=== PATIENT | female | born 1945 | race Caucasian/White ===

== ENCOUNTER 2021-07-25 09:05 | Emergency (ER) | payer MEDICARE, MEDICAID, SELFPAY ==
[2021-07-25 09:12] VITALS: BP 155/77; PULSE 75; RESP 20; TEMP 36.5; O2SAT 97
--- NOTE | 2021-07-25 09:46 | ED.SKABFB ---
HPI - Skin/Abscess/Foreign Bdy General Chief complaint: Skin/Abscess/Foreign Body Stated complaint: RED BUMP ON ARM Time Seen by Provider: 07/25/21 09:46 Source: patient and RN notes reviewed Mode of arrival: ambulatory Limitations: no limitations History of Present Illness complaint: insect bite/sting Onset (ago): day(s) (5) Location: RUE (forearm) Severity: mild Quality: aching and dull Pain Consistency: constant Relieving factors: none Exacerbating factors: none Context: none Associated symptoms: denies other symptoms Treatments prior to arrival: none Related Data Home Medications Medication Instructions Recorded Confirmed atenolol 50 mg PO DAILY 07/25/21 07/25/21 lovastatin 40 mg PO DAILY 07/25/21 07/25/21 metformin 500 mg PO DAILY 07/25/21 07/25/21 Review of Systems Review of Systems: All systems reviewed & are unremarkable except as noted in HPI and below Constitutional: Constitutional: Denies chills and Denies fever(s) PMFSH Past Medical History Medical History (Updated 07/25/21 @ 10:03 by Drake Dickens MD) Hyperlipidemia Hypertension Type 2 diabetes mellitus Social History Social History (Updated 07/25/21 @ 10:04 by Drake Dickens MD) Smoking status: Former smoker Exam Const: General: healthy appearing, no acute distress and alert Nutritional Appearance: well nourished Orientation/consciousness: patient oriented x3 HENMT: Head: normal to inspection Ears: external ears normal Eyes: Conjunctivae: conjunctivae normal Pupils: Equal, round and reactive pupils present EOM: EOMs intact bilaterally Neck: Neck: normal visual inspection Resp: Effort & Inspection: normal respiratory effort Auscultation: clear to auscultation bilaterally Cardio: Rate: regular rate Rhythm: regular rhythm GI: Auscultation: normal bowel sounds Back/Spine/Pelvis: Cervical Spine: cervical ROM normal Thoracic/Lumbar Spine: thoraco-lumbar ROM normal Skin: General skin exam: normal color Lesions: lesion noted macule right mid forearm size (4 cm), borders well-defined, color blanching, consistency soft, surface blanching, cool and smooth and tender Neuro: General: patient oriented x3, moves all extremities, no focal motor deficits and CN's II-XI intact bilaterally Speech: normal speech Gait exam (Neuro): Normal gait present Extrem: General: normal to inspection and no clubbing, cyanosis or edema Psych: Appearance: grossly normal and well kempt Mental Status: mental status grossly normal Affect: normal affect Attitude: cooperative Thought content: Yes Normal thought content present Discharge Plan Discharge Clinical Impression: Insect bites Qualifiers: Encounter type: initial encounter Site of insect bite: forearm Laterality: right Qualified Code(s): S50.861A - Insect bite (nonvenomous) of right forearm, initial encounter Patient Disposition: Home, Self-Care Condition: Stable Instructions: Insect Bite or Sting (ED) Additional Instructions: Use Tylenol and or Motrin as needed. Warm compresses as needed. Prescriptions: No Action metformin 500 mg tablet 500 mg PO DAILY RF: 0 lovastatin 40 mg tablet 40 mg PO DAILY RF: 0 atenolol 50 mg tablet 50 mg PO DAILY RF: 0 Follow-up/Referrals: Gladys,JOSE Conway [Primary Care Provider] - Time of Disposition: 09:56
[2021-07-25 10:08] VITALS: BP 155/77; PULSE 75; RESP 20; TEMP 36.5; O2SAT 97
== END 2021-07-25 10:09 | disposition home or self-care (01) ==
PROVIDERS: Emergency Provider Emergency Medicine; PCP Physician Assistant
DX: S50.861A Insect bite (nonvenomous) of right forearm, initial encounter (principal); W57.XXXA Bitten or stung by nonvenomous insect and other nonvenomous arthropods, initial encounter
CPT/HCPCS: 99281

== ENCOUNTER 2022-01-05 09:40 | Emergency (ER) | payer MEDICARE, MEDICAID, SELFPAY ==
[2022-01-05 09:43] VITALS: BP 178/69; PULSE 81; RESP 17; TEMP 36.4; O2SAT 100
[2022-01-05 09:45] VITALS: BP 178/69; PULSE 78; RESP 16; TEMP 36.4; O2SAT 100
--- NOTE | 2022-01-05 10:00 | ED.ALLEREA ---
HPI - Allergic Reaction General Chief complaint: Allergic Reaction Stated complaint: bee sting allergic reaction Source: patient Mode of arrival: ambulatory History of Present Illness HPI narrative: 76-year-old female with a history of hypertension, dyslipidemia, diabetes mellitus presented to the ER with a 2 day history of -- erythematous rash on the right forearm measuring 3 cm X 6 cm which developed after a bee sting. No prior history of a major allergic reaction to a bee sting. No wheezing or shortness of breath. No abdominal pain. No lightheadedness. No other the rash noted. MD complaint: allergic reaction Onset (ago): day(s) ( Started 2 days ago) Exposure: insect bite ( bee sting) Symptoms: rash and itching Severity: mild Treatment prior to arrival: none Previous Allergic Reaction History: none Related Data Home Medications Medication Instructions Recorded Confirmed atenolol 50 mg tablet 50 mg PO DAILY 07/25/21 01/05/22 lovastatin 40 mg tablet 40 mg PO DAILY 07/25/21 01/05/22 metformin 500 mg tablet 500 mg PO DAILY 07/25/21 01/05/22 Allergies Allergy/AdvReac Type Severity Reaction Status Date / Time Sulfa (Sulfonamide Allergy Dizziness Verified 01/05/22 09:51 Antibiotics) Review of Systems Review of Systems: All systems reviewed & are unremarkable except as noted in HPI and below Constitutional: Constitutional: Reports as per HPI and Reports no additional constitutional complaints Eyes: Eyes: Reports as per HPI and Reports no additional eye complaints ENT: Reports system reviewed and no additional complaints, except as documented and Reports as per HPI Cardiovascular: Cardiovascular: Reports as per HPI and Reports no additional cardiovascular complaints Respiratory: Respiratory: Reports as per HPI and Reports no additional respiratory complaints Gastrointestinal: Gastrointestinal: Reports as per HPI and Reports no additional gastrointestinal complaints Genitourinary: Genitourinary: Reports no additional female genitourinary complaints and Reports as per HPI Musculoskeletal: Musculoskeletal: Reports no additional musculoskeletal complaints and Reports as per HPI Integumentary/Breasts: Skin/Breast: Reports system reviewed and no additional complaints, except as docu and Reports as per HPI Comments: 3 cmX 6 cm oval rash on the right forearm which is itchy Neurologic: Reports system reviewed and no additional complaints, except as documented and Reports as per HPI Psychiatric: Psychiatric: Reports no additional psychiatric complaints and Reports as per HPI Endocrine: Endocrine: Reports no additional endocrine complaints and Reports as per HPI Hematologic/Lymphatic: Hematologic/Lymphatic: Reports no additional hematologic/lymphatic complaints and Reports as per HPI Allergic/Immunologic: Allergic/Immunologic: Reports no additional allergic/immunologic complaints and Reports as per HPI PMFSH Past Medical History Medical History Hyperlipidemia Hypertension Type 2 diabetes mellitus Social History Social History Smoking status: Former smoker Exam Const: General: healthy appearing and no acute distress Nutritional Appearance: well nourished Orientation/consciousness: patient oriented x3 Limitations: no limitations HENMT: Head: normal to inspection Ears: external ears normal Face/Nose/Sinus: Normal external nose present Face and sinus: normal facial exam Mouth: Yes Normal oral and palatal mucosa present Eyes: Conjunctivae: conjunctivae normal Pupils: Equal, round and reactive pupils present EOM: EOMs intact bilaterally Direct Ophthalmoscopy: no photophobia Neck: Neck: normal visual inspection, no lymphadenopathy and no meningeal signs Chest: Chest palpation & inspection: normal inspection of the chest Resp: Effort & Inspection: normal respiratory effort Auscultatio
[2022-01-05 10:15] VITALS: BP 181/74; PULSE 81; RESP 18; TEMP 37.4; O2SAT 98
[2022-01-05 10:24] VITALS: BP 178/69; PULSE 78; RESP 16; TEMP 36.4; O2SAT 100
== END 2022-01-05 10:26 | disposition home or self-care (01) ==
PROVIDERS: Emergency Provider Internal Medicine Critical Care Medicine; PCP Physician Assistant
DX: T63.441A Toxic effect of venom of bees, accidental (unintentional), initial encounter (principal); E78.5 Hyperlipidemia, unspecified; I10 Essential (primary) hypertension; E11.9 Type 2 diabetes mellitus without complications
CPT/HCPCS: 99281

== ENCOUNTER 2025-03-04 07:54 | Emergency (ER) | payer MEDICARE, SELFPAY ==
[2025-03-04 07:54] VITALS: BP 178/80; PULSE 99; RESP 16; TEMP 36.7; O2SAT 98
--- OUTSIDE RECORDS SUMMARY | 2025-03-04 08:02 | XMS_ITS ---
Author Organization Unknown Address [address] [place] [phone] Phone Care Team Providers Care Lidder Name Role Phone RAJENDRA TAVERA Rodrigo Attending Unavailable DALIA ESPARZA Primary Unavailable Immunization Immunization Date Status Additional Notes Code Code System Influenza, high-dose, quadrivalent, PF 01/08/2022 Completed 197 CVX Social History Type Status Start Date End Date Code Code Syst em Smoking History Former smoker [id number] SNOMED CT Sex Female Hospital Discharge Instructions Should you have any questions prior to discharge, please contact a member of your healthcare team. If you have left the hospital and have any questions, please contact your primary care physician. Reason For Referral No Data Found Procedures Procedure Name Date Status Code Code Syste m Arthrocentesis, aspiration a nd/or injection, major joint or bursa; without 01/23/2025 completed CP T Plan of Treatment No Data Found Encounters Encounter Diagnosis Start Date Code Code Sys tem Unilateral primary osteoarthritis, left knee SNOMED-CT Personal Care Team Section
--- OUTSIDE RECORDS SUMMARY | 2025-03-04 08:02 | XMS_ITS | Clinical Summary ---
Author Organization [facility] Address [address] [place] [id number] Care Team Providers Care Pneumatic Jacketer Name Role Phone Unavailable Primary Care Provider Unavailabl e Social History Tobacco Use Types Packs/Day Years Used Date Smoking Tobacco: Never Assessed Comments Unknown Sex and Gender Information Value Date Recorded Sex Assigned at Not on file Legal Sex Female 11:25 AM CDT Gender Identity Not on file Sexual Orientation Not on file Plan of Treatment Health Maintenance Due Date Last Done Comments Hepatitis C 1963 DTaP, Tdap and Td Vaccines ( 1 - Tdap) 1965 Pneumococcal Vaccine: 50+ Ye ars (1 of 1 - PCV) 1996 Zoster Vaccines (1 of 2) 1996 Annual Medicare Wellness Visit 11/07/2011 Dexa Scan (General) 11/07/2011 RSV Immunization or 60+ Years (1 - 1-dose 75+ series) 2021 COVID-19 Vaccine (1 - 2024-2 6 season) 2024 Influenza Adult (#1) 2024 Hepatitis A Vaccines Aged Out No long er eligible based on patient's age to complete this topic Meningococcal B Vaccine Aged Out No l onger eligible based on patient's age to complete this topic Meningococcal Vaccine Aged Out No [place] eligible based on patient's age to complete this topic RSV Immunizations Under 20 Months Aged Out No longer eligible based on patient's age to complete this topic Insurance MEDICARE
--- OUTSIDE RECORDS SUMMARY | 2025-03-04 08:02 | XMS_ITS ---
Author Organization Unknown Address [address] [place] [phone] Phone Care Team Providers Care Event Marketing Manager Name Role Phone YAKELIN PHILIPEN Attending Unavailable DALIA ESPARZA Primary Unavailable Immunization Immunization Date Status Additional Notes Code Code System Influenza, high-dose, quadrivalent, PF 01/08/2022 Completed 197 CVX Results KNEE 4V LEFT - Completed: 15:06 LOINC: \TM00\\12PI\\DRAo\\BM09\ \MRHo\ [address] [address] ---------NAME--------- NUMBER SEX AGE ADMIT DISC. XRAY# F/C TYPE YAJAIRA CENTENO [id number] F 78 08/11/24 08/11/24 [id number] MB3 O/P DATE OF : 1945 M/R# [id number] PH#: [phone] RM \MRHx\ LOCATION: TRANSCRIBED: 08/11/24 16:28 KNEE 4V LEFT [id number] COMPLETED:08/11/24 15:06 [facility] [id number] {REASON-KNEE: LEFT KNEE PAIN PHYSICIAN: YAKELIN RUSSELL R A D I O L O G Y R E P O R T EXAM: KNEE 4V LEFT CLINICAL INDICATION: LEFT KNEE PAIN TECHNIQUE: KNEE 4V LEFT Comparison: KNEE 4V LEFT on DOS: 07/02/20, KNEE 4V RIGHT on DOS: 07/02/20 FINDINGS/IMPRESSION: There is no evidence of acute fracture or dislocation. Moderate left knee osteoarthritis. The alignment is anatomical. There is no radiopaque foreign body. 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 \ITLo\ \UNDo\ \UNDx\ \ITLx\ Reviewed and Electronically Signed by: Earnest Crow MD Signed Date: 08/11/24 16:28 08/11/24.1630.[email or web address].to DALIA FLORES via fax Social History Type Status Start Date End Date Code Code Syst em Smoking History Former smoker [id number] SNOMED CT Sex Female Hospital Discharge Instructions [...] nd/or injection, major joint or bursa; without completed CPT Plan of Treatment No Data Found Encounters Encounter Diagnosis Start Date Code Code Sys tem Unilateral primary osteoarthritis, left knee SNOMED-CT Personal Care Team Section Imaging Narrative Notes [facility] 08/11/2024 16:[address] [address] ---------NAME--------- NUMBER SEX AGE ADMIT DISC. XRAY# F/C TYPE YAJAIRA CENTENO [id number] F 78 08/11/24 08/11/24 [id number] MB3 O/P DATE OF : 1945 M/R# [id number] #: [phone] RM LOCATION: TRANSCRIBED: 08/11/24 16:28 KNEE 4V LEFT [id number] COMPLETED:08/11/24 15:06 [facility] [id number] {REASON-KNEE: LEFT KNEE PAIN PHYSICIAN: YAKELIN RUSSELL RADIOLOGY REPORT EXAM: KNEE 4V LEFT CLINICAL INDICATION: LEFT KNEE PAIN TECHNIQUE: KNEE 4V LEFT Comparison: KNEE 4V LEFT on DOS: 07/02/20, KNEE 4V RIGHT on DOS: 07/02/20 FINDINGS/IMPRESSION: There is no evidence of acute fracture or dislocation. Moderate left knee osteoarthritis. The alignment is anatomical. There is no radiopaque foreign body. 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
--- OUTSIDE RECORDS SUMMARY | 2025-03-04 08:02 | XMS_ITS | Data Portability ---
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 Plan of Treatment Reminders Order Date Submit Date Provider Last Modified By Organization Details Last Modified Time Details Appointments None recorded. Lab rapid strep group A, throat 2024 025 jnanney In-Office Order, Internal Use Only DO Not Attach Compendium DO Not Attach Compendium, Do Not Delete/merge, [id number] 11:02:11 HbA1c (hemoglobi n A1c), blood 2023 024 jnanney In-Office Order, Internal Use Only DO Not Attach Compendium DO Not Attach Compendium, Do Not Delete/merge, [id number] 14:07:49 HbA1c (hemoglobi n A1c), blood 2022 023 jnanney In-Office Order, Internal Use Only DO Not Attach Compendium DO Not Attach Compendium, Do Not Delete/merge, [id number] 10:50:02 HbA1c (hemoglobi n A1c), blood 2021 022 [facility] In-Office Order, Internal Use Only DO Not Attach Compendium DO Not Attach Compendium, Do Not Delete/merge, [id number] 11:54:00 CBC 2021 022 [facility], [address] [place] [address], [address], 2 07:13:02 CMP, serum or plasma 10/13/ 2022 10/13/2 022 [facility], [address] [facility], [facility] [address], [place], [address], 07:13:01 lipid panel, serum 2021 [facility], [address] [facility], [facility] [address], [place], [address], 07:13:01 TSH, serum or plasma 2021 [facility], [address] [facility], [address], [place], [address], 06:15:22 CBC 2021 [facility], [address] [place] [address], [address], [place], [address], 06:15:20 lipid panel, serum [address] [facility], [address] [facility], [address], [place], [address], 06:15:20 CMP, serum or plasma 2021 [facility], [address] [place] [address], [address], [place], [address], 06:15:19 HbA1c (hemoglobi n A1c), blood 2021 [place] In-Office Order, Internal Use Only DO Not Attach Compendium DO Not Attach Compendium, Do Not Delete/merge, [id number] 12:36:14 Referral None recorded. Procedures None recorded. Surgeries None recorded. Imaging None recorded. Medication Orders amoxicilli n 875 mg tablet 2024 025 [facility] #[id number], [address] [place], [address], 5 11:03:22 chlordiaze poxide 5 mg capsule 2023 024 [facility] [address] [place], [address], 4 14:09:14 atenolol 50 mg tablet 2023 024 [facility] [address] [place], [address], 4 14:09:14 lovastatin 20 mg tablet 2023 024 [facility] [address] [place], [address], 4 14:09:18 atenolol 50 mg tablet [facility] [address] [place], [address], 4 13:30:51 Patient TargetsNo targets recorded. Patient Instructions Encounter Date Encounter Id Patient Instructions Last Modified By Organization Details Last Modified Time 06/04/2021 [id number] learning about type 2 diabetes jnanney Not available 06/04/2021 12:09:43 type 2 diabetes: care instructions jnanney Not available 06/04/2021 12:09:42 learning about healthy weight jnanney Not available 06/04/2021 12:09:42 learning about high blood pressure jnanney Not available 06/04/2021 12:09:42 01/08/2022 [id number] influenza (flu) vaccine: care instructions jnanney Not available 01/08/2022 11:25:51 07/30/2022 [id number] A healthy lifestyle: care instructions jnanney Not available 07/30/2022 10:51:54 type 2 diabetes: care instructions jnanney Not available 07/30/2022 10:50:02 10/29/2023 [id number] learning about high blood pressure jnanney Not available 10/29/2023 14:07:48 type 2 diabetes: care instructions jnanney Not available 10/29/2023 14:07:48 05/12/2024 [id number] sore throat: car e instructions jnanney Not available 05/12/2024 11:02:10 A healthy lifestyle: care instructions jnanney Not available 05/12/2024 11:02:10 Reason for Referral None Reported. Results Created Date Observation Date Name Description Value Unit Range Abnormal Flag Note LastModifiedBy Organization Detail LastModifiedTime 06/05/19 22 06/05/2021 COMP. METAB OLIC PANEL (14) glucose 122 mg/dL 65-99 above high normal Not Available [facility] ([facility]) [address] [place], [address], 06/11/2021 06:15:19 06/05/19 22 06/05/2021 COMP. METAB OLIC PANEL (14) BUN 16 mg/dL 8-27 Not Available [facility] ([facility]) [address] [place], [address], 06/11/2021 06:15:19 06/05/19 22 06/05/2021 COMP. METAB OLIC PANEL (14) creatinine 0.84 mg/dL 0.57-1 .00 Not Available [facility] ([facility]) [address] [place], [address], 06/11/2021 06:15:19 06/05/19 22 06/05/2021 COMP. METAB OLIC PANEL (14) eGFR 73 mL/mi n/1.7 3 >59 Not Available [facility] ([facility]) [address] [place], [address], 06/11/2021 06:15:19 06/05/19 22 06/05/2021 COMP. METAB OLIC PANEL (14) BUN/creatini ne ratio 19 -28 Not Available [facility] ([facility]) [address] [place], [address], 06/11/2021 06:15:19 06/05/19 22 06/05/2021 COMP. METAB OLIC PANEL (14) sodium 140 mmol/ L 134-14 4 Not Available [facility] ([facility]) [address] [facility] [place], [address], 06/11/2021 06:15:19 06/05/19 22 06/05/2021 COMP. METAB OLIC PANEL (14) potassium 5.2 mmol/ L 3.5-5. 2 Not Available [facility] ([facility]) [address] [facility] [place], [address], 06/11/2021 06:15:19 06/05/19 22 06/05/2021 COMP. METAB OLIC PANEL (14) chloride 101 mmol/ L 96-106 Not Available [facility] ([facility]) [address] [facility] [place], [address], 06/11/2021 06:15:19 06/05/19 22 06/05/2021 COMP. METAB OLIC PANEL (14) carbon dioxide, total 23 mmol/ L 20-29 Not Available [facility] ([facility]) [address] [place], [address], 06/11/2021 06:15:19 06/05/19 22 06/05/2021 COMP. METAB OLIC PANEL (14) calcium 10.0 mg/dL 8.7-10 .3 Not Available [facility] ([facility]) [address] [place], [address], 06/11/2021 06:15:19 06/05/19 22 06/05/2021 COMP. METAB OLIC PANEL (14) protein, total 7.5 g/dL 6.0-8. 5 Not Available [facility] ([facility]) [address] [place], [address], 06/11/2021 06:15:19 06/05/19 22 06/05/2021 COMP. METAB OLIC PANEL (14) albumin 4.7 g/dL 3.7-4. 7 Not Available [facility] ([facility]) [address] [facility] [place], [address], 06/11/2021 06:15:19 06/05/19 22 06/05/2021 COMP. METAB OLIC PANEL (14) globulin, total 2.8 g/dL 1.5-4. 5 Not Available [facility] ([facility]) [address] [facility] [place], [address], 06/11/2021 06:15:19 06/05/19 22 06/05/2021 COMP. METAB OLIC PANEL (14) A/G ratio 1.7 1.2-2. 2 Not Available [facility] ([facility]) [address] [facility] [place], [address], 06/11/2021 06:15:19 06/05/19 22 06/05/2021 COMP. METAB OLIC PANEL (14) bilirubin, total 0.5 mg/dL 0.0-1. 2 Not Available [facility] ([facility]) [address] [facility] [place], [address], 06/11/2021 06:15:19 06/05/19 22 06/05/2021 COMP. METAB OLIC PANEL (14) alkaline phosphatase 86 IU/L 44-121 Not Available [facility] ([facility]) [address] [facility] [place], [address], 06/11/2021 06:15:19 06/05/19 22 06/05/2021 COMP. METAB OLIC PANEL (14) AST (SGOT) 18 IU/L 0-40 Not Available [facility] ([facility]) [address] [facility] [place], [address], 06/11/2021 06:15:19 06/05/19 22 06/05/2021 COMP. METAB OLIC PANEL (14) ALT (SGPT) 17 IU/L 0-32 Not Available [facility] ([facility]) [address] [facility], [place], [address], 06/11/2021 06:15:19 06/05/19 22 06/05/2021 CBC, PLATE LET, NO DIFFE RENTI AL WBC 7.2 x10e3 /uL 3.4-10 .8 Not Available [facility] ([facility]) [address] [facility], [place], [address], 06/11/2021 06:15:20 06/05/19 22 06/05/2021 CBC, PLATE LET, NO DIFFE RENTI AL RBC 5.08 x10e6 /uL 3.77-5 .28 Not Available [facility] ([facility]) [address] [facility], [place], [address], 06/11/2021 06:15:20 06/05/19 22 06/05/2021 CBC, PLATE LET, NO DIFFE RENTI AL hemoglobin 14.8 g/dL 11.1-1 5.9 Not Available [facility] ([facility]) [address] [facility], [place], [address], 06/11/2021 06:15:20 06/05/19 22 06/05/2021 CBC, PLATE LET, NO DIFFE RENTI AL hematocrit 44.6 % 34.0-4 6.6 Not Available [facility] ([facility]) [address] [facility], [place], [address], 06/11/2021 06:15:20 06/05/19 22 06/05/2021 CBC, PLATE LET, NO DIFFE RENTI AL MCV 88 fL 79-97 Not Available [facility] ([facility]) [address] [place], [address], 06/11/2021 06:15:20 06/05/19 22 06/05/2021 CBC, PLATE LET, NO DIFFE RENTI AL MCH 29.1 pg 26.6-3 3.0 Not Available [facility] ([facility]) [address], [place], [address], 06/11/2021 06:15:20 06/05/19 22 06/05/2021 CBC, PLATE LET, NO DIFFE RENTI AL MCHC 33.2 g/dL 31.5-3 5.7 Not Available [facility] ([facility]) [address] [facility], [place], [address], 06/11/2021 06:15:20 06/05/19 22 06/05/2021 CBC, PLATE LET, NO DIFFE RENTI AL RDW 12.6 % 11.7-1 5.4 Not Available [facility] ([facility]) [address] [facility], [place], [address], 06/11/2021 06:15:20 06/05/19 22 06/05/2021 CBC, PLATE LET, NO DIFFE RENTI AL platelets 323 x10e3 /uL 150-45 0 Not Available [facility] ([facility]) [address] [facility], [place], [address], 06/11/2021 06:15:20 06/05/19 22 06/05/2021 CBC, PLATE LET, NO DIFFE RENTI AL NRBC RECORDS COORDINATOR Not Available [facility] ([facility]) [address] [facility], [place], [address], 06/11/2021 06:15:20 06/05/19 22 06/05/2021 LIPID PANEL cholesterol, total 316 mg/dL 100-19 9 above high normal Not Available [facility] ([facility]) [address] [facility] [place], [address], 06/11/2021 06:15:20 06/05/19 22 06/05/2021 LIPID PANEL triglyceride s 180 mg/dL 0-149 above high normal Not Available [facility] ([facility]) [address] [facility] [place], [address], 06/11/2021 06:15:20 06/05/19 22 06/05/2021 LIPID PANEL HDL cholesterol 55 mg/dL >39 Not Available [facility] ([facility]) [address] [facility], [place], [address], 06/11/2021 06:15:20 06/05/19 22 06/05/2021 LIPID PANEL VLDL cholesterol jonny 35 mg/dL 5-40 Not Available [facility] ([facility]) [address] [facility], [place], [address], 06/11/2021 06:15:20 06/05/19 22 06/05/2021 LIPID PANEL LDL chol calc ([facility]) 226 mg/dL 0-99 above high normal Not Available [facility] ([facility]) [address] [facility], [place], [address], 06/11/2021 06:15:20 06/05/19 22 06/05/2021 LIPID PANEL comment: RECORDS COORDINATOR Not Available [facility] ([facility]) [address] [facility], [place], [address], 06/11/2021 06:15:20 06/05/19 22 06/05/2021 CARDI OVASC ULAR REPOR T interpretati on Note Suppl ement al repor t is avail able. Not Available [facility] ([facility]) [address] [facility], [place], [address], 06/11/2021 06:15:21 06/05/19 22 06/05/2021 CARDI OVASC ULAR REPOR T pdf Not applic able Not Available [facility] ([facility]) [address] [facility], [place], [address], 06/11/2021 06:15:21 06/05/19 22 06/05/2021 LITHO LINK CKD PROGR AM interpretati on Note Medic al Direc tor's Note: Effec tive 2021, [facility] uses the 2020 CKD-E PI creat inine equat ion witho ut a race facto r to calcu late and repor t eGFR resul ts. eGFR resul ts repor roxanne prior to this date using the 2009 CKD-E PI equat ion are no longe r inclu ded in this repor t inter preta tion. Suppl ement al repor t is avail able. Not Available [facility] ([facility]) [address] [facility], [place], [address], 06/11/2021 06:15:21 06/05/19 22 06/05/2021 LITHO LINK CKD PROGR AM pdf . Not Available [facility] ([facility]) [address] [facility], [place], [address], 06/11/2021 06:15:21 06/05/19 22 06/10/2021 THYRO ID STIMU LATIN G HORMO NE TSH-icma 2.4 uu/mL Refer ence Range : Non-P regna nt Adult 0.450 -4.50 0 Pregn leonardo First Trime ster 0.100 -4.00 0 Secon d Trime ster 0.200 -4.00 0 Third Trime ster 0.300 -4.50 0 Not Available [facility] [address] [facility], [place], [address], 06/11/2021 06:15:22 06/05/19 22 06/04/2021 HbA1c (hemo globi n A1c), blood HbA1c 6.4 Not Available In-Office Order Internal Use Only DO Not Attach Compendium DO Not Attach Compendium, Do Not Delete/merge, [id number] 06/04/2021 12:06:46 01/09/2001/09/2022 LIPID PANEL cholesterol, total 257 mg/dL 100-19 9 above high normal Not Available [facility] ([facility]) [address] [facility], [place], [address], 01/09/2022 07:13:01 01/09/20 22 01/09/2022 LIPID PANEL triglyceride s 213 mg/dL 0-149 above high normal Not Available [facility] ([facility]) [address] [place], [address], 01/09/2022 07:13:01 01/09/20 22 01/09/2022 LIPID PANEL HDL cholesterol 50 mg/dL >39 Not Available [facility] ([facility]) [address] [place], [address], 01/09/2022 07:13:01 01/09/20 22 01/09/2022 LIPID PANEL VLDL cholesterol jonny 40 mg/dL 5-40 Not Available [facility] ([facility]) [address] [place], [address], 01/09/2022 07:13:01 01/09/2001/09/2022 LIPID PANEL LDL chol calc ([facility]) 167 mg/dL 0-99 above high normal Not Available [facility] ([facility]) [address] [place], [address], 01/09/2022 07:13:01 01/09/2001/09/2022 COMP. METAB OLIC PANEL (14) glucose 98 mg/dL 70-99 Ple ase note refer ence inter brad burak e Not Available [facility] ([facility]) [address] [place], [address], 01/09/2022 07:13:01 01/09/20 22 01/09/2022 COMP. METAB OLIC PANEL (14) BUN 8 mg/dL 8-27 Not Available [facility] ([facility]) [address] [place], [address], 01/09/2022 07:13:01 01/09/2001/09/2022 COMP. METAB OLIC PANEL (14) creatinine 0.89 mg/dL 0.57-1 .00 Not Available [facility] ([facility]) [address] [place], [address], 01/09/2022 07:13:01 01/09/20 22 01/09/2022 COMP. METAB OLIC PANEL (14) eGFR 68 mL/mi n/1.7 3 >59 Not Available [facility] ([facility]) [address] [facility], [place], [address], 01/09/2022 07:13:01 01/09/20 22 01/09/2022 COMP. METAB OLIC PANEL (14) BUN/creatini ne ratio 9 12-28 below low normal Not Available [facility] ([facility]) [address] [place], [address], 01/09/2022 07:13:01 01/09/20 22 01/09/2022 COMP. METAB OLIC PANEL (14) sodium 142 mmol/ L 134-14 4 Not Available [facility] ([facility]) [address] [place], [address], 01/09/2022 07:13:01 01/09/20 22 01/09/2022 COMP. METAB OLIC PANEL (14) potassium 4.5 mmol/ L 3.5-5. 2 Not Available [facility] ([place] [facility]) [address] [place], [address], 01/09/2022 07:13:01 01/09/20 22 01/09/2022 COMP. METAB OLIC PANEL (14) chloride 104 mmol/ L 96-106 Not Available [facility] ([place] [facility]) [address] [place], [address], 01/09/2022 07:13:01 01/09/20 22 01/09/2022 COMP. METAB OLIC PANEL (14) carbon dioxide, total 23 mmol/ L 20-29 Not Available [facility] ([facility] [facility]) [address] [place], [address], 01/09/2022 07:13:01 01/09/20 22 01/09/2022 COMP. METAB OLIC PANEL (14) calcium 9.9 mg/dL 8.7-10 .3 Not Available [facility] ([place] [facility]) [address] [place], [address], 01/09/2022 07:13:01 01/09/20 22 01/09/2022 COMP. METAB OLIC PANEL (14) protein, total 7.2 g/dL 6.0-8. 5 Not Available [facility] ([facility]) [address] [place], [address], 01/09/2022 07:13:01 01/09/20 22 01/09/2022 COMP. METAB OLIC PANEL (14) albumin 4.9 g/dL 3.7-4. 7 above high normal Not Available [facility] ([facility]) [address] [place], [address], 01/09/2022 07:13:01 01/09/20 22 01/09/2022 COMP. METAB OLIC PANEL (14) globulin, total 2.3 g/dL 1.5-4. 5 Not Available [facility] ([facility]) [address], [place], [address], 01/09/2022 07:13:01 01/09/20 22 01/09/2022 COMP. METAB OLIC PANEL (14) A/G ratio 2.1 1.2-2. 2 Not Available [facility] ([facility]) [address] [place], [address], 01/09/2022 07:13:01 01/09/20 22 01/09/2022 COMP. METAB OLIC PANEL (14) bilirubin, total 0.5 mg/dL 0.0-1. 2 Not Available [facility] ([facility]) [address] [facility] [place], [address], 01/09/2022 07:13:01 01/09/20 22 01/09/2022 COMP. METAB OLIC PANEL (14) alkaline phosphatase 70 IU/L 44-121 Not Available [facility] ([facility]) [address] [place], [address], 01/09/2022 07:13:01 01/09/2001/09/2022 COMP. METAB OLIC PANEL (14) AST (SGOT) 19 IU/L 0-40 Not Available [facility] ([facility]) [address] [facility], [place], [address], 01/09/2022 07:13:01 01/09/2001/09/2022 COMP. METAB OLIC PANEL (14) ALT (SGPT) 12 IU/L 0-32 Not Available [facility] ([facility]) [address] [facility], [place], [address], 01/09/2022 07:13:01 01/09/2001/09/2022 CBC, PLATE LET, NO DIFFE RENTI AL WBC 5.9 x10e3 /uL 3.4-10 .8 Not Available [facility] ([facility]) [address] [facility], [place], [address], 01/09/2022 07:13:02 01/09/2001/09/2022 CBC, PLATE LET, NO DIFFE RENTI AL RBC 4.88 x10e6 /uL 3.77-5 .28 Not Available [facility] ([facility]) [address] [facility], [place], [address], 01/09/2022 07:13:02 01/09/2001/09/2022 CBC, PLATE LET, NO DIFFE RENTI AL hemoglobin 14.5 g/dL 11.1-1 5.9 Not Available [facility] ([facility]) [address] [facility], [place], [address], 01/09/2022 07:13:02 01/09/2001/09/2022 CBC, PLATE LET, NO DIFFE RENTI AL hematocrit 42.9 % 34.0-4 6.6 Not Available [facility] ([facility]) [address] [facility], [place], [address], 01/09/2022 07:13:02 01/09/2001/09/2022 CBC, PLATE LET, NO DIFFE RENTI AL MCV 88 fL 79-97 Not Available [facility] ([facility]) [address] [facility], [place], [address], 01/09/2022 07:13:02 01/09/2001/09/2022 CBC, PLATE LET, NO DIFFE RENTI AL MCH 29.7 pg 26.6-3 3.0 Not Available [facility] ([facility]) [address] [facility], [place], [address], 01/09/2022 07:13:02 01/09/2001/09/2022 CBC, PLATE LET, NO DIFFE RENTI AL MCHC 33.8 g/dL 31.5-3 5.7 Not Available [facility] ([facility]) [address] [facility], [place], [address], 01/09/2022 07:13:02 01/09/2001/09/2022 CBC, PLATE LET, NO DIFFE RENTI AL RDW 12.7 % 11.7-1 5.4 Not Available [facility] ([facility]) [address] [facility], [place], [address], 01/09/2022 07:13:02 01/09/2001/09/2022 CBC, PLATE LET, NO DIFFE RENTI AL platelets 268 x10e3 /uL 150-45 0 Not Available [facility] ([facility]) [address] [facility], [place], [address], 01/09/2022 07:13:02 01/09/2001/09/2022 CARDI OVASC ULAR REPOR T interpretati on Note Suppl emvane al repor t is avail able. Not Available [facility] ([facility]) [address] [facility], [place], [address], 01/09/2022 07:13:02 01/09/20 22 01/09/2022 CARDI OVASC ULAR REPOR T pdf . Not Available [facility] ([facility]) [address] [facility], [place], [address], 01/09/2022 07:13:02 01/09/20 22 01/08/2022 HbA1c (hemo globi n A1c), blood HbA1c 6.0 Not Available In-Office Order Internal Use Only DO Not Attach Compendium DO Not Attach Compendium, Do Not Delete/merge, [id number] 01/08/2022 11:23:00 07/31/19 23 07/30/2022 HbA1c (hemo globi n A1c), blood HbA1c 6.0 Not Available In-Office Order Internal Use Only DO Not Attach Compendium DO Not Attach Compendium, Do Not Delete/merge, [id number] 07/29/2022 19:02:40 10/29/19 24 10/29/2023 HbA1c (hemo globi n A1c), blood HbA1c 6.0 Not Available In-Office Order Internal Use Only DO Not Attach Compendium DO Not Attach Compendium, Do Not Delete/merge, [id number] 10/29/2023 13:32:20 05/12/19 25 05/12/2024 rapid strep group A, throa t Strep negati ve Not Available In-Office Order Internal Use Only DO Not Attach Compendium DO Not Attach Compendium, Do Not Delete/merge, [id number] 05/12/2024 10:47:27 08/12/19 25 08/11/2024 XR, knee No observ [email or web address] [address] [place], [address], 08/14/2024 09:35:07 Result Notes None recorded. Problems Name Problem SNOMED Code Status Onset Date Resolution Date Notes Provider Name and Address Organization Details Recorded Time Near syncope 544110489 Active TYLOR Rahman [place] - [place] 6 15:44:25 Essential hypertension 92533841 Active TYLOR Rahman [place] 6 15:44:25 Anxiety 47392190 Active Isaias Graham PA-C Attn: Accountarthur g,[address] [facility], [place], [address], [facility] - SI 6 16:15:48 Palpitations 81987594 Active Isaias Graham PA-C Attn: Accountarthur g,[address], [place], [address], [facility] - SIF 6 16:15:48 Type 2 diabetes mellitus 08197065 Active 2017 Isaias Graham PA-C Attn: Accountarthur g,[address] [facility], [place], [address], [facility] - SI 8 11:44:38 Problem Notes None recorded. Procedures Surgical History Date Name Laterality Status Provider Name and Address Organization Details Recorded Time hysterectomy completed Poly Ocasio MA [facility] 01/08/2022 11:00:26 Imaging Results None recorded. Procedure Notes None recorded. Medical Equipment None Reported. Allergies Allergen ID Allergen Name Allergen Category Reaction Reaction Severity Criticality Documentation Date Start Date Code Code System Note Provider Name and Address Organization Details Recorded Time 227342 Substance with sulfonami de structure and antibacte rial mechanism of action (substanc e) medicatio n Not available Not available Not available 08/02/2020 14017 8003 SNOMED TYLOR Correa, [facility] 1 10:11:45 65108 codeine medicatio n Not available Not available Not available 09/05/2015 2670 RxNorm passe s out TYLOR Rahman, [facility] 6 11:21:03 Medications Name Sig Start Date Stop Date Status Note LastModified by Organization Details LastModified Time amoxicillin 500 mg capsule Take 1 capsule 3 times a day by oral route for 10 days. 04/29 completed Not Available Not Available Not Available buspirone 5 mg tablet Take 1 tablet twice a day by oral route for 30 days. 09/30 completed Not Available Not Available Not Available metformin 500 mg tablet Take 1 tablet by mouth twice daily 10/28 completed Not Available Not Available Not Available triamcinolo ne acetonide 0.5 % topical cream APPLY CREAM TOPICALLY TO AFFECTED AREA TWICE DAILY 10/28 completed Not Available Not Available Not Available lisinopril 20 mg tablet Take 1 tablet every day by oral route for 90 days. 01/08 completed Not Available Not Available Not Available lovastatin 40 mg tablet TAKE 1 TABLET BY MOUTH ONCE DAILY FOR 90 DAYS . APPOINTME NT REQUIRED FOR FUTURE REFILLS 10/28 completed Not Available Not Available Not Available Tessalon Perles 100 mg capsule Take 1 capsule 3 times a day by oral route as needed for 30 days. 04/29 completed Not Available Not Available Not Available chlordiazep oxide 5 mg capsule TAKE 1 CAPSULE BY MOUTH THREE TIMES DAILY active Not Available Not Available No t Available amoxicillin 875 mg tablet TAKE 1 TABLET BY MOUTH EVERY 12 HOURS FOR 10 DAYS active Not Available Not Available No t Available citalopram 20 mg tablet Take 1 tablet every day by oral route for 30 days. 09/30 completed Not Available Not Available Not Available cephalexin 500 mg capsule TAKE 1 CAPSULE BY MOUTH EVERY 8 HOURS DIRECTED FOR 10 DAYS active Not Available Not Available No t Available diclofenac sodium 75 mg tablet,rain yed release TAKE 1 TABLET BY MOUTH TWICE DAILY 10/28 completed Not Available Not Available Not Available lovastatin 20 mg tablet TAKE 1 TABLET BY MOUTH ONCE DAILY IN THE EVENING WITH MEALS active Not Available Not Available No t Available sertraline 50 mg tablet Take 1 tablet every day by oral route for 90 days. 08/02 completed Not Available Not Available Not Available atenolol 50 mg tablet TAKE 1 TABLET BY MOUTH ONCE DAILY active Not Available Not Available No t Available azithromyci n 500 mg tablet Take 1 tablet every day by oral route for 3 days. 02/06 completed Not Available Not Available Not Available Rhinocort Allergy 32 mcg/actuati on nasal spray Take 1 spray twice a day by nasal route. 08/02 completed Not Available Not Available Not Available Flucelvax Quad 60 mcg (15 mcg x 4)/0.5 mL intramuscul ar susp [facility]ARMAC[facility] 01/08 completed Not Available Not Available Not Available BinaxNOW COVID-19 Ag Self Test kit Use as Directed on the Package 05/04 /2023 completed Not Available Not Available Not Available Vitals Date Recorded Body height Body mass index (BMI) Body weight Oxygen saturation Heart rate Respiratory rate Systolic And Diastolic Provider Name and Address Organization Details Last Updated DateTime 5 167.64 cm 26.2 kg/m2 39523.4 g 97 % 83 /min 16 /min 140/82 mm[Hg] Paty Martinez MA [facility] 5 10:49:13 Date Recorded Body height Body temperature Oxygen saturation Heart rate Body mass index (BMI) Body weight Systolic And Diastolic Provider Name and Address Organization Details Last Updated DateTime 2 167.64 cm 97.6 [degF] 98 % 67 /min 25.8 kg/m2 00388.4 8 g 142/88 mm[Hg] Arpita weiss MA [facility] 2 11:51:29 Date Recorded Body height Body mass index (BMI) Body weight Oxygen saturation Heart rate Body temperature Systolic And Diastolic Provider Name and Address Organization Details Last Updated DateTime 3 167.64 cm 25.2 kg/m2 27016.4 1 g 95 % 72 /min 98.2 [degF] 159/73 mm[Hg] Poly lopez MA [facility] 3 10:26:44 Date Recorded Body height Body mass index (BMI) Body weight Oxygen saturation Heart rate Systolic And Diastolic Provider Name and Address Organization Details Last Updated DateTime 4 167.64 cm 24.7 kg/m2 93533.6 3 g 98 % 103 /min 142/70 mm[Hg] Alisa Lagos MA [facility] 4 13:30:21 Date Recorded Body height Body mass index (BMI) Body weight Body temperature Oxygen saturation Heart rate Systolic And Diastolic Provider Name and Address Organization Details Last Updated DateTime 2 167.64 cm 25.8 kg/m2 74072.7 8 g 97.2 [degF] 98 % 81 /min 122/78 mm[Hg] Poly lopez MA [facility] 2 10:56:27 Social History Question Answer Notes LastModified by Organizat ion Details LastModified Time Tobacco Smoking Status Former Smoker quit 20 years ago Poly Ocasio MA [facility], [place] - [facility] 01/08/2022 10:58:33 What Is Your Level Of Caffeine Consumption? Occasional Information not available 01/08/2022 How Much Tobacco Do You Chew? None Information not available 02/06/2019 In The 14 Days Before Symptom Onset, Have You Had Close Contact With A Laboratory-confir med COVID-19 While That Case Was Ill? No Information not available 08/02/2020 In The 14 Days Before Symptom Onset, Have You Had Close Contact With A Person Who Is Under Investigation For COVID-19 While That Person Was Ill? No Information not available 08/02/2020 Have You Been To An Area Known To Be High Risk For COVID-19? No Information not available 08/02/2020 What Type Of Diet Are You Following? REGULAR Information not available 08/02/2020 What Was The Date Of Your Most Recent Tobacco Screening? 05/12/2024 Information not available 05/12/2024 What Is Your Relationship Status? Information not available 08/02/2020 Do You Have Smoke And Carbon Monoxide Detectors In Your Home? Yes Information not available 08/02/2020 Are You Passively Exposed To Smoke? No Information no t available 08/02/2020 How Much Tobacco Do You Smoke? No Information not available 02/06/2019 On What Date Was Tobacco Cessation Counseling Provided? 05/12/2024 Information not available 05/12/2024 Sex: Female Functional Status Question Answer Note LastModified by Organizat ion Details LastModified Time Do you use any illicit or recreational drugs? No Information not available 08/02/2020 Do you or have you ever used any other forms of tobacco or nicotine? No Information not available 08/02/2020 What is your level of alcohol consumption? Occasional Information not available 02/06/2019 Do you or have you ever used smokeless tobacco? Never used smokeless tobacco Information not available 02/06/2019 Are you currently employed? No quit working in June 2021 Information not available 01/08/2022 Are you able to care for yourself independently? Yes Information not available 08/02/2020 Do you or have you ever used e-cigarettes or vape? Never used electronic cigarettes Information not available 02/06/2019 What is your exercise level? None Information not available 01/08/2022 Mental Status Question Answer Note LastModified by Organization D etails LastModified Time Do you feel stressed (tense, restless, nervous, or anxious, or unable to sleep at night)? [id number] Information not available 07/30/2022 Family History Relationship Description Onset Age of this Age Resolved Age Notes LastModified by Organization Details LastModified Time Mother Diabetes mellitus [email or web address] Not available 07/2015 15:44:25 Mother Heart disease [email or web address] Not available 07/2015 15:44:25 Mother Myocardial infarction [email or web address] Not available 07/2015 15:44:25 Father Alcoholism Not avai lable 10/01/2015 15:44:25 Father Heart disease [email or web address] Not available 07/2015 15:44:25 Father Myocardial infarction [email or web address] Not available 07/2015 15:44:25 Sister Dementia Not availa ble 10/01/2015 15:44:25 Medical History Condition Response Coronary Artery Disease N High Blood Pressure N Atrial Fibrillation N Thyroid Problems N Kidney or Bladder Problems N GI Problems N Depression Y COPD N Blood Clots N Skin Problems N Eating Disorder N Anemia N Heart Attack ([place]) N Anxiety Disorder Y Diabetes Y Muscle, Joint, or Bone Problems N Seizures/Epilepsy N Acid Reflux (GERD) N Cancer Y Stroke N Asthma N Allergies N ADHD N Substance Abuse N High Cholesterol Y Hepatitis N Liver Disease N Schizophrenia N Headaches N Heart Failure N Osteoporosis N Gynecological History Statement/Question Response Date of Last Mammogram Obstetrics History GPAL:G 0 P 0 0 0 0 Immunizations Vaccine Type Date Status Note Provider Nam e and Address Organization Details Recorded Time Influenza, high-dose, quadrivalent, PF 01/08/2022 completed Alisa Lagos MA null, [place] - [facility] 01/08/2022 11:47:38 Past Encounters Encounter ID Performer Location Encounter Start Date Encounter Closed Date Diagnosis/Indication Diagnosis SNOMED-CT Code Diagnosis ICD10 Code Diagnosis IMO Codes Diagnosis Note [id number] Isaias Graham PA-C [facility] [address] [place] [address] 09/05/2015 10:59:01 09/05/2015 12:26:06 Near syncope 423222838 R55 Essential hypertension 72227530 I10 [id number] Juan David Peterson MD [facility] [address] [place] [address] 09/17/2015 14:59:48 09/17/2015 15:36:23 Essential hypertension 23615293 I10 Anxiety 77247777 F41.9 [id number] Juan David Peterson MD [facility] [address] [place] [address] 10/01/2015 15:28:36 10/01/2015 16:19:36 Anxiety 06389199 F41.9 Palpitations 89500357 R0 0.2 [id number] Juan David Peterson MD [facility] [address] [place] [address] 08/26/2016 10:33:48 08/26/2016 16:17:15 Diabetes mellitus 85347930 E11.9 Essential hypertension 85730074 I10 Chronic depression 87520 0009 F34.1 [id number] Juan David Peterson MD [facility] [address] [place] [address] 05/04/2017 11:02:23 05/04/2017 12:10:39 Diabetes mellitus 74401827 E11.9 test 1 time daily On examina tion - rash present 039178981 R21 [id number] Juan David Peterson MD [facility] [address] [place] [address] 09/01/2017 16:19:22 09/01/2017 17:19:45 Seasonal allergic rhinitis 482125109 J30.2 [id number] Isaias Graham PA-C [facility] [address] [place] [address] 04/29/2018 10:06:00 04/29/2018 11:21:44 Type 2 diabetes mellitus 38351716 E11.9 Anxiety 31824925 F41.1 Essential hypertension 24444305 I10 Hyperlipidemia 28192502 E78.2 Acute maxi llary sinusitis 65617685 J01.01 Chronic depression 68093 0009 F34.1 [id number] Isaias Graham PA-C [facility] [address] [place] [address] 02/06/2019 09:39:45 02/06/2019 16:06:21 Essential hypertension 71632534 I10 Type 2 ruel betes mellitus without complication 175677563 E11.9 [id number] Isaias Graham PA-C [facility] [address] [place] [address] 07/10/2019 09:53:53 07/12/2019 11:33:56 Anxiety 16556728 F41.1 Essential hypertension 21764380 I10 Type 2 ruel betes mellitus 19610122 E11.9 Upper resp iratory infection 86444798 J06.9 Viral syndrome 505144773 B34.9 [id number] Isaias Graham PA-C [facility] [address] [place] [address] 07/14/2019 14:26:14 07/19/2019 12:29:04 Upper respiratory infection 68999621 J00 [id number] Isaias Graham PA-C [facility] [address] [place] [address] 11/14/2019 10:08:16 11/14/2019 14:14:25 Essential hypertension 95278957 I10 Type 2 ruel betes mellitus 89103863 E11.9 Muscle weakness 70073032 M62.81 COVID-19 135263662 U07.1 [id number] Juan David Peterson MD [facility] [address] [place] [address] 08/02/2020 10:06:29 08/06/2020 13:53:31 Mixed hyperlipidemia 454144722 E78.2 Essential hypertension 75856680 I10 [id number] Juan David Peterson MD [facility] [address] [place] [address] 06/04/2021 11:28:19 06/04/2021 12:35:12 Anxiety 99838110 F41.1 Essential hypertension 73908267 I10 Type 2 ruel betes mellitus 12986253 E11.9 Body mass index 25-29 - overweight 959358263 Z68.29 [id number] Isaias Graham PA-C [facility] [address] [place] [address] 01/08/2022 10:40:25 01/08/2022 12:10:46 Adult health examination 137877711 Z00.00 Administra tion of influenza vaccine 19418387 Z23 [id number] Isaias Graham PA-C [facility] [address] [place] [address] 07/30/2022 10:21:04 07/31/2022 10:27:34 Type 2 diabetes mellitus without complication 464000111 E11.9 Overweight 550867766 E66 .3 [id number] Juan David Peterson MD [facility] [address] [place] [address] 10/29/2023 13:02:01 11/08/2023 12:51:51 Type 2 diabetes mellitus without complication 631490497 E11.9 Essential hypertension 95394200 I10 Body mass index 20-24 - normal 879331232 Z68.24 Generalize d anxiety disorder 83005089 F41.1 Hyperlipidemia 53575943 E78.2 Adult [facility] th examination 627918788 Z00.00 [id number] Juan David Peterson MD [facility] [address] [place] [address] 05/12/2024 10:36:39 05/15/2024 15:31:09 Sore throat 972591753 J02.0 Overweight 604707583 E66 .3 Health Concerns Section Related Observation LastModified by Organization Detai ls LastModified Time None Recorded Concern Status LastModified by Organization Details LastModified Time None Recorded Advance Directives Directive None Recorded Payers Insurance Date Sequence Insurance Name Policy Number Policy Howard Covered Member ID Howard Member ID Guarantor Name 07/28/2024 1 [place] [employer] Yumiko Coburn [id number] Yumiko Coburn 07/28/2024 1 [facility] Yumiko Coburn [id number] Yumiko Coburn 05/15/2024 2 [place] OR MEDICARE REPLACEMENT PRIMARY) Yumiko Coburn [id number] Yumiko Coburn 11/05/2023 [place] - [place] Yumiko Coburn [id number] Yumiko Coburn 11/05/2023 [place] Yumiko Coburn [id number] Yumiko Coburn 09/04/2024 2 [place]PLACEMENT [place]IMARY) Yumiko Coburn [id number] Yumiko Coburn 09/04/2024 1 [facility] (MEDICARE REPLACEMENT/AD VANTAGE - PPO) [id number] Yumiko Coburn [id number] Yumiko Coburn 11/05/2023 1 [employer] (MEDICARE REPLACEMENT/AD VANTAGE - PPO) Yumiko Coburn [id number] Yumiko Coburn Notes Date Note Type Note Provider Name and Address Organization Details Recorded Time 06/04/2021 text/html ROS as noted in the HPI knee pains...cortisone shots did not help...is going to retire and is concerned with dementia... Isaias Graham PA-C Attn: [address] [place], [address], [facility] 06/04/2021 12:13:12 01/08/2022 text/html ROS as noted in the HPI had a bee sting that she is allergic to...was treated at urgent care...bp went to 180/90... Alisa Lagos MA [facility], [place] - [facility] 01/08/2022 11:29:28 07/30/2022 text/html ROS as noted in the HPI needs labs vs diabetes...meds refilled...patient does not want blood work today Isaias Graham PA-C Attn: [address] [place], [address], [facility] - [facility] 07/30/2022 10:52:34 10/29/2023 text/html ROS as noted in the HPI returns to clinic.Has not taken meds in 3 months..metformin atenolol and lovastatin...does take her chlordiazepoxide.. .questions need...get a1c for verification Isaias Graham PA-C Attn: [address] [facility], [place], [address], [facility] - [facility] 10/29/2023 14:09:15 05/12/2024 text/html ROS as noted in the HPI sore throat is killing her..present for 3 days...felt feverish Isaias Graham PA-C Attn: [address] [facility], [place], [address], [facility] - [facility] 05/12/2024 11:05:04 OBGyn Episode No OBEpisode recorded.
--- OUTSIDE RECORDS SUMMARY | 2025-03-04 08:02 | XMS_ITS | Clinical Summary ---
Author Organization [facility] Address [address] [place] [address] Phone Care Team Providers Care Auto Locator Name Role Phone Roman Graham Primary Care Provider [phone] Allergies Active Allergy Reactions Criticality Noted Date Comments Codeine Other (see Comments) 09/05/2015 Medications metFORMIN (GLUCOPHAGE-XR) 500 MG TABLET SR 24 HR Take 500 mg by mouth daily. This RX is for Metformin SR. Active lovastatin (MEVACOR) 20 MG Tablet Take 20 mg by mouth every evening. Active Social History Tobacco Use Types Packs/Day Years Used Date Smoking Tobacco: Never Alcohol Use Standard Drinks/Week Comments No 0 (1 standard drink = 0.6 oz pur e alcohol) Comments No Sex and Gender Information Value Date Recorded Sex Assigned at Not on file Legal Sex Female 1:07 PM CDT Gender Identity Not on file Sexual Orientation Not on file Last Filed Vital Signs Vital Sign Reading Time Taken Comments Blood Pressure 157/73 09/05/2015 1:30 PM CDT Pulse 128 09/05/2015 3:27 PM CDT Temperature 36.8 C (98.3 F) 09/05/2015 1:29 PM CDT Respiratory Rate 22 09/05/2015 3:30 PM CDT Oxygen Saturation 90% 09/05/2015 3:27 PM CDT Inhaled Oxygen Concentration - - Weight 69.2 kg (152 lb 8 oz) 09/05/2015 1:30 PM CDT Height - - Body Mass Index - - Plan of Treatment Not on file Insurance MEDICARE Care Teams Auto Locator Relationship Specialty Start Date End Date Roman Graham, [address] [place] [address] PCP - General Physician Roller Varnisher 09/05/15
--- NOTE | 2025-03-04 08:12 | ED_ITS ---
HPI - Skin/Abscess/Foreign Bdy General Chief complaint: Skin/Abscess/Foreign Body Stated complaint: left wrist injury Time Seen by Provider: 03/04/25 08:11 Source: patient Mode of arrival: ambulatory Limitations: no limitations History of Present Illness HPI narrative: 79-year-old female with a history of hypertension, dyslipidemia, diabetes mellitus presents to the ED with --cat scratch 4 days ago over the left wrist. The cat's claw got stuck on the skin the back of her left wrist and caused extensive bruising of the pack of left wrist and back of left hand. No fever. No skin eruptions on the back of the left wrist and upper hand. No regional lymphadenopathy. Patient is unsure about her tetanus immunization status. MD complaint: other (Extensive bruising on the back of her left hand and wrist) Onset (ago): day(s) (4 days ago) Tetanus up to date: no Location: RUE and L hand Severity: mild Quality: other (Bruising is asymptomatic) Relieving factors: none Exacerbating factors: none Context: other (Cat scratch) Associated symptoms: denies other symptoms Treatments prior to arrival: none Related Data Home Medications ?Medication ?Instructions ?Recorded ?Confirmed ?Last Taken ?Type atenolol 50 mg tablet 50 mg PO DAILY 07/25/2112/27 Unknown History lovastatin 40 mg tablet 40 mg PO DAILY 07/25/2112/27 Unknown History Allergies Allergy/AdvReac Type Severity Reaction Status Date / Time Sulfa (Sulfonamide Allergy Dizziness Verified 03/04/25 08:06 Antibiotics) Review of Systems Review of Systems: All systems reviewed & are unremarkable except as noted in HPI and below Constitutional: Constitutional: Reports as per HPI and Reports no additional constitutional complaints Eyes: Eyes: Reports as per HPI and Reports no additional eye complaints ENT: Reports system reviewed and no additional complaints, except as documented and Reports as per HPI Cardiovascular: Cardiovascular: Reports as per HPI and Reports no additional cardiovascular complaints Respiratory: Respiratory: Reports as per HPI and Reports no additional respiratory complaints Gastrointestinal: Gastrointestinal: Reports as per HPI and Reports no additional gastrointestinal complaints Genitourinary: Genitourinary: Reports no additional female genitourinary complaints and Reports as per HPI Musculoskeletal: Musculoskeletal: Reports no additional musculoskeletal complaints and Reports as per HPI Integumentary/Breasts: Skin/Breast: Reports system reviewed and no additional complaints, except as docu and Reports as per HPI Comments: Extensive bruising on the back of her left wrist and back of left hand Neurologic: Reports system reviewed and no additional complaints, except as documented and Reports as per HPI Psychiatric: Psychiatric: Reports no additional psychiatric complaints and Reports as per HPI Endocrine: Endocrine: Reports no additional endocrine complaints and Reports as per HPI Hematologic/Lymphatic: Hematologic/Lymphatic: Reports no additional hematologic/lymphatic complaints and Reports as per HPI Allergic/Immunologic: Allergic/Immunologic: Reports no additional allergic/immunologic complaints and Reports as per HPI [facility] Past Medical History Medical History Hyperlipidemia Type 2 diabetes mellitus Hypertension Social History Social History Smoking status: Former smoker Exam Narrative: Afebrile. Const: General: healthy appearing and no acute distress Nutritional Appearance: well nourished Orientation/consciousness: patient oriented x3 Limitations: no limitations HENMT: Head: normal to inspection Ears: external ears normal Face/Nose/Sinus: Normal external nose present Face and sinus: normal facial exam Mouth: Yes Normal oral and palatal mucosa present Teeth and gingiva: dentition normal Throat: posterior oropharynx normal Eyes: Conjunctivae: conjunctivae normal Pupils: Equal, round and reactive pupils present EOM: EOMs intact bilaterally Direct Ophthalmoscopy: no photophobia Neck: Neck: normal visual inspection, no lymphadenopathy and no meningeal signs Chest: Chest palpation & inspection: normal inspection of the chest Resp: Effort & Inspection: normal respiratory effort Auscultation: clear to auscultation bilaterally Cardio: Rate: regular rate Rhythm: regular rhythm GI: GI Palp: Yes Soft to palpation Auscultation: normal bowel sounds Other: No tenderness/rigidity/rebound : General: Yes no CVA tenderness Back/Spine/Pelvis: Back: no CVA tenderness Skin: Wounds: no wounds Other: Extensive bruising on the back of the left wrist and left hand. Nontender on palpation. No regional lymphadenopathy. Neuro: General: patient oriented x3, moves all extremities, no meningeal signs, no focal motor deficits and CN's II-XI intact bilaterally Cranial nerves: Yes Nystagmus not present Speech: normal speech Gait exam (Neuro): Normal gait present Extrem: General: normal to inspection and no clubbing, cyanosis or edema Psych: Mental Status: mental status grossly normal Affect: normal affect Attitude: cooperative Course Course Emergency Course: Patient had CT scratch 4 days ago. The patient does not have any papular vesicular or pustular lesions. No regional lymphadenopathy. The patient is not up-to-date on tetanus. The patient insists on getting prophylactic antibiotics for cat scratch disease. Will prescribe Zithromax. Will give her Adacel. Advised her to follow-up with her primary care physician if she has any skin eruptions, fever or regional lymphadenopathy Vital Signs Vital signs: Vital Signs Temperature 36.7 C 03/04/25 07:54 Pulse Rate 99 03/04/25 07:54 Respiratory Rate 16 03/04/25 07:54 Blood Pressure 178/80 H 03/04/25 07:54 Pulse Oximetry 98 03/04/25 07:54 Oxygen Delivery Room Air 03/04/25 07:54 Temperature 36.7 C 03/04/25 07:54 Pulse Rate 99 03/04/25 07:54 Respiratory Rate 16 03/04/25 07:54 Blood Pressure 178/80 H 03/04/25 07:54 Pulse Oximetry 98 03/04/25 07:54 Oxygen Delivery Room Air 03/04/25 07:54 [facility] MDM Narrative Medical decision making narrative: Cat scratch Differential Diagnosis Differential Diagnosis: Cat scratch disease, cellulitis Discharge Plan Discharge Clinical Impression: Cat scratch Patient Disposition: Home Condition: Stable Instructions: Antibiotic Form, Cat Scratch Disease (ED) Patient Language: Cypriot Prescriptions: New azithromycin [Zithromax] 250 mg tablet See Rx Instructions .ROUTE .COMPLEX Qty: 6 0RF Rx Instructions: For 250 mg dose pack: take 500 mg today (day 1), then 250 mg for 4 days (days 2-5) No Action lovastatin 40 mg tablet 40 mg PO DAILY atenolol 50 mg tablet 50 mg PO DAILY Follow-up/Referrals: Gladys,JOSE Conway [Primary Care Provider] Time of Disposition: 08:25
[2025-03-04] MEDS: TETANUS,DIPHTHERIA,AC PERTUSSIS ADULT 0.5 ML (ADACEL) IM (08:22)
--- OUTSIDE RECORDS SUMMARY | 2025-03-04 08:36 | XMS_ITS ---
Author Organization Unknown Address [address] [place] [phone] Phone Care Team Providers Care Call Or Contact Centre Coach Name Role Phone YAKELIN PHILIPEN Attending Unavailable DALIA ESPARZA Primary Unavailable Immunization Immunization Date Status Additional Notes Code Code System Influenza, high-dose, quadrivalent, PF 01/08/2022 Completed 197 CVX Results KNEE 4V LEFT - Completed: 15:06 LOINC: \TM00\\12PI\\DRAo\\BM09\ \MRHo\ [address] [address] ---------NAME--------- NUMBER SEX AGE ADMIT DISC. XRAY# F/C TYPE YAJAIRA CENTENO [id number] F 78 08/11/24 08/11/24 81126 MB3 O/P DATE OF : 1945 M/R# [id number] PH#: [phone] RM \MRHx\ LOCATION: TRANSCRIBED: 08/11/24 16:28 KNEE 4V LEFT [id number] COMPLETED:08/11/24 15:06 [facility] [address] {REASON-KNEE: LEFT KNEE PAIN PHYSICIAN: YAKELIN RUSSELL [...] anatomical. There is no radiopaque foreign body. PROFESSIONAL \ITLo\ \UNDo\ \UNDx\ \ITLx\ Reviewed and Electronically Signed by: Earnest Crow MD Signed Date: 08/11/24 16:28 08/11/24.1630.[facility].to DALIA FLORES via fax Social History Type Status Start Date End Date Code Code Syst em Smoking History Former smoker 4060174 SNOMED CT Sex Female Hospital Discharge Instructions [...] Personal Care Team Section Imaging Narrative Notes [facility] 08/11/2024 16:[address] [address] ---------NAME--------- NUMBER SEX AGE ADMIT DISC. XRAY# F/C TYPE YAJAIRA CENTENO [id number] F 78 08/11/24 08/11/24 13639 MB3 O/P DATE OF : 1945 M/R# [id number] #: [id number] RM LOCATION: TRANSCRIBED: 08/11/24 16:28 KNEE 4V LEFT [id number] COMPLETED:08/11/24 15:06 [facility] [id number] {REASON-KNEE: LEFT KNEE PAIN PHYSICIAN: YAKELIN RUSSELL RADIOLOGY REPORT EXAM: KNEE 4V LEFT CLINICAL INDICATION: LEFT KNEE PAIN TECHNIQUE: KNEE 4V LEFT Comparison: KNEE 4V LEFT on DOS: 07/02/20, KNEE 4V RIGHT on DOS: 07/02/20 FINDINGS/IMPRESSION: There is no evidence of acute fracture or dislocation. Moderate left knee osteoarthritis. The alignment is anatomical. There is no radiopaque foreign body. PROFESSIONAL Reviewed and Electronically Signed by: Earnest Crow MD Signed Date: 08/11/24 16:28 08/11/24.1630.[facility].to DALIA FLORES via fax
--- OUTSIDE RECORDS SUMMARY | 2025-03-04 08:36 | XMS_ITS ---
Author Organization Unknown Address [address] [place] [phone] Phone Care Team Providers Care [employer] Commerce Consultant Name Role Phone RAJENDRA TAVERA Rodrigo Attending Unavailable DALIA ESPARZA Primary Unavailable Immunization Immunization Date Status Additional Notes Code Code System Influenza, high-dose, quadrivalent, PF 01/08/2022 Completed 197 CVX Social History Type Status Start Date End Date Code Code Syst em Smoking History Former smoker [id number] SNOMED CT Sex Female Hospital Discharge Instructions [...]
--- OUTSIDE RECORDS SUMMARY | 2025-03-04 08:36 | XMS_ITS | Clinical Summary ---
Author Organization [facility] Address [address] [place] [address] Phone Care Team Providers Care Drawer In [employer]oom Name Role Phone Roman Graham Primary Care Provider [phone] Allergies Active Allergy Reactions Criticality Noted Date [...] Not on file Insurance MEDICARE Care Teams Drawer In [employer]oom Relationship Specialty Start Date End Date Roman Graham, [address] [place] [address] PCP - General Physician Check Writer 09/05/15
--- OUTSIDE RECORDS SUMMARY | 2025-03-04 08:36 | XMS_ITS | Clinical Summary ---
Author Organization [facility] Address [address] [place] [id number] Care Team Providers Care Superintendent Maintenance Name Role Phone Unavailable Primary Care Provider [...] age to complete this topic Insurance MEDIC[place] [address] [place] [id number]
== END 2025-03-04 08:39 | disposition home or self-care (01) ==
LOC: CHSED 08:34
PROVIDERS: Emergency Provider Internal Medicine Critical Care Medicine; PCP Physician Assistant
DX: S60.812A Abrasion of left wrist, initial encounter (principal); I10 Essential (primary) hypertension; E78.5 Hyperlipidemia, unspecified; E11.9 Type 2 diabetes mellitus without complications; Z87.891 Personal history of nicotine dependence; W55.03XA Scratched by cat, initial encounter; Z23 Encounter for immunization
CPT/HCPCS: 90471; 90715; 99283